=== PATIENT | female | born 2000 | race Caucasian/White ===

== ENCOUNTER → 2020-04-18 | Outpatient (CLI) | payer BC ==
[2020-04-19 04:47] LABS: Gliadin AB IgA, Deaminated NEGATIVE (NEGATIVE); Gliadin AB IgA, Unit 0.2 U/mL; Gliadin AB IgG, Deaminated NEGATIVE (NEGATIVE)
[2020-04-19 05:43] LABS: Shrimp IgE <0.10 kU/L
[2020-04-19 13:14] LABS: Beef IgE <0.10 kU/L (<0.10); Beef IgE Class CLASS 0; Crab IgE <0.10 kU/L (<0.10); Crab IgE Class CLASS 0; Lettuce IgE Class CLASS 0; Pork IgE Class CLASS 0
[2020-04-19 13:15] LABS: Apple IgE Class CLASS 0; Onion IgE <0.10 kU/L (<0.10); Onion IgE Class CLASS 0; Salmon IgE <0.10 kU/L (<0.10); Salmon IgE Class CLASS 0; Yeast Bakers/Brew IgE <0.10 kU/L (<0.10); Yeast Bakers/Brew IgE Class CLASS 0
[2020-04-19 13:16] LABS: Celery IgE <0.10 kU/L (<0.10); Celery IgE Class CLASS 0; Chicken IgE Class CLASS 0; Egg Yolk IgE Class CLASS 0; Gluten IgE Class CLASS 0; Lobster IgE <0.10 kU/L (<0.10); Lobster IgE Class CLASS 0; Oat IgE Class CLASS 0
[2020-04-19 13:17] LABS: Avocado Class CLASS 0; Banana IgE Class CLASS 0; Chocolate IgE Class CLASS 0; Coffee IgE <0.10 kU/L (<0.10); Coffee IgE Class CLASS 0; Cow's Milk IgE Class CLASS 0; Egg White IgE <0.10 kU/L (<0.10); Hazelnut IgE <0.10 kU/L (<0.10); Hazelnut IgE Class CLASS 0; Kiwi IgE <0.10 kU/L (<0.10); Kiwi IgE Class CLASS 0; Latex IgE Class CLASS 0; Peanut IgE <0.10 kU/L (<0.10); Potato IgE <0.10 kU/L (<0.10); Potato IgE Class CLASS 0; Soybean IgE <0.10 kU/L (<0.10); Tea IgE <0.10 kU/L (<0.10); Tea IgE Class CLASS 0
== END | disposition home or self-care (01) ==
LOC: LABWHC1 13:47
PROVIDERS: ATTEND Nurse Practitioner Family
DX: J30.89 Other allergic rhinitis (principal); R10.13 Epigastric pain; K90.49 Malabsorption due to intolerance, not elsewhere classified
CPT/HCPCS: 36415; 83516; 86003